=== PATIENT | male | born 1975 ===

== ENCOUNTER 2017-03-09 12:09 | Emergency (ER) | payer MEDICAID, MEDICARE ==
[2017-03-09 12:09] VITALS: BMI 32.6
[2017-03-09 12:15] VITALS: TEMP 98.1
[2017-03-09 12:59] LABS: SQUAMOUS EPITHIAL 2 /hpf (0-5); URINE BILIRUBIN NEGATIVE (NEGATIVE); URINE BLOOD 3+ (NEGATIVE); URINE CLARITY Clear (Clear); URINE COLOR Yellow (YELLOW); URINE GLUCOSE (UA) NORMAL (Normal); URINE LEUKOCYTE ESTERASE 1+ Leu/uL (Negative); URINE NITRATE NEGATIVE (NEGATIVE); URINE PROTEIN NEGATIVE (NEGATIVE); URINE UROBILINOGEN NORMAL mg/dL (0.2-1.0)
[2017-03-09] MEDS ORDERED: cefTRIAXone (Rocephin) 250 mg Inj IM STA (13:10)
--- NOTE | 2017-03-09 13:12 | C.PDOC ---
History Of Present Illness 41 y/o male presents to the ED with complaints of hematuria, dysuria which onset this morning. Pt states he was urinating and sneezed when he noticed blood in his urine; also noticed blood in subsequent urinations. Denies abdominal pain, back pain, flank pain, fever, chills, nausea, vomiting or any other complaints. Pt sexually active with 1 partner, no safe sex. No history of STD. Time Seen by Provider: 03/09/17 12:33 Chief Complaint (Nursing): Male Genitourinary History Per: Patient History/Exam Limitations: no limitations Onset/Duration Of Symptoms: Hrs Current Symptoms Are (Timing): Still Present Severity: Mild Associated Symptoms: Urinary Symptoms. denies: Fever, Chills, Nausea, Vomiting , Back Pain Alleviating Factors: None Recent travel outside of the [place]: No Past Medical History Reviewed: Historical Data, Nursing Documentation, Vital Signs Vital Signs: Last Vital Signs Temp 98.1 F 03/09/17 12:11 Pulse 104 H 03/09/17 12:11 Resp 18 03/09/17 12:11 BP 133/88 03/09/17 12:11 Pulse Ox 96 03/09/17 13:18 - Medical History PMH: Anxiety, Depression, HTN, Hypercholesterolemia Family History: States: Unknown Family Hx - Social History Hx Tobacco Use: No Hx Alcohol Use: Yes Hx Substance Use: Yes - Immunization History Hx Tetanus Toxoid Vaccination: No Hx Influenza Vaccination: Yes Hx Pneumococcal Vaccination: No Review Of Systems Except As Marked, All Systems Reviewed And Found Negative. Constitutional: Negative for: Fever, Chills Gastrointestinal: Negative for: Nausea, Vomiting, Abdominal Pain Genitourinary: Positive for: Dysuria, Hematuria Musculoskeletal: Negative for: Back Pain Physical Exam - Physical Exam Appears: Non-toxic, No Acute Distress Skin: Warm, Dry, No Rash Head: Atraumatic, Normacephalic Lymphatic: No Adenopathy (no inguinal lymphadenopathy) Cardiovascular: Rhythm Regular, No Murmur Respiratory: Normal Breath Sounds, No Rales, No Rhonchi, No Wheezing Gastrointestinal/Abdominal: Normal Exam, Soft, No Tenderness Back: No CVA Tenderness Male Genital: Normal Inspection, No Testicular Tenderness, No Inguinal Swelling , Other (no discharge or blood noted from urethra) Extremity: Normal ROM Neurological/Psych: Oriented x3, Normal Speech ED Course And Treatment O2 Sat by Pulse Oximetry: 96 (room air) Pulse Ox Interpretation: Normal Progress Note: Plan: UA, urine culture. Unlikely to be STD, but will treat preemptively with cipro Medical Decision Making Medical Decision Making: Patient with blood and leuks in the urine. Treated with Rocephin and Azytro Will d/c with Cipro. Disposition Counseled Patient/Family Regarding: Studies Performed, Diagnosis, Need For Followup, Rx Given - Disposition Referrals: Oracio Nye DO [Staff Provider] - Joselito Chopra MD [Staff Provider] - Disposition: HOME/ ROUTINE Disposition Time: 14:03 Condition: STABLE Additional Instructions: Follow up with your doctor and Urology. Take your antibiotics as indicated. Return to the Emergency Department with any further concerns. Call Dr. Wong for urine culture. [phone] Prescriptions: Ciprofloxacin [Cipro] 1 tab PO BID #14 tab Instructions: Acute Hematuria (DC) Forms: General Discharge Instructions - POA Present On Arrival: None - Clinical Impression Clinical Impression: Hematuria - Scribe Statement The provider has reviewed the documentation as recorded by the Monica Mayorga Provider Attestation: All medical record entries made by the Monica were at my direction and personally dictated by me. I have reviewed the chart and agree that the record accurately reflects my personal performance of the history, physical exam, medical decision making, and the department course for this patient. I have also personally directed, reviewed, and agree with the discharge instructions and disposition.
[2017-03-09 14:11] VITALS: BP 131/85; PULSE 100; RESP 20; O2SAT 98
== END 2017-03-09 14:14 | disposition home or self-care (01) ==
LOC: C.ER 12:09
DX: R31.9 Hematuria, unspecified (principal)
CPT/HCPCS: 81001; 87086; 96372; 99284; J0696

== ENCOUNTER 2018-02-09 12:54 | Inpatient (IN) | payer MEDICARE, MEDICAID ==
[2018-02-09 12:55] VITALS: BMI 32.6
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
[2018-02-09 13:54] LABS: BASO # 0.1 K/uL (0.0-0.2); BASO % 1.1 % (0.0-2.0); EOS # 0.2 K/uL (0.0-0.7); EOS % 2.2 % (0.0-4.0); HEMOGLOBIN 16.4 g/dL (12.0-18.0); LYMPH # 4.3 K/uL (1.0-4.3); LYMPH % 48.6 % (20.0-40.0); MEAN CELL VOLUME 84.8 fL (80.0-94.0); MEAN CORPUSCULAR HEMOGLOBIN 28.9 pg (27.0-31.0); MEAN CORPUSCULAR HGB CONC 34.1 g/dL (33.0-37.0); MEAN PLATELET VOLUME 7.8 fL (7.2-11.7); MONO # 0.7 K/uL (0.0-0.8); NEUT # 3.5 K/uL (1.8-7.0); NEUT % 40.1 % (50.0-75.0); NRBC % 0.1 % (0.0-2.0); RBC 5.65 Mil/uL (4.40-5.90); RED CELL DISTRIBUTION WIDTH 14.6 % (11.5-14.5); WHITE BLOOD COUNT 8.8 K/uL (4.8-10.8)
[2018-02-09 14:13] LABS: ALB/GLOB RATIO 1.2 (1.0-2.1); ALT/SGPT 76 U/L (21-72); AST/SGOT 48 U/L (17-59); BLOOD UREA NITROGEN 9 mg/dL (9-20); CALCIUM 9.6 mg/dl (8.6-10.4); GFR AFRICAN-AMERICAN > 60; GFR NON-AFRICAN AMERICAN > 60
[2018-02-09 14:34] LABS: SQUAMOUS EPITHIAL 1 /hpf (0-5); URINE BACTERIA RARE (<OCC); URINE BILIRUBIN NEGATIVE (NEGATIVE); URINE BLOOD 1+ (NEGATIVE); URINE CLARITY Clear (Clear); URINE COLOR Yellow (YELLOW); URINE GLUCOSE (UA) NORMAL (Normal); URINE HYALINE CAST 0-2 /lpf (0-2); URINE LEUKOCYTE ESTERASE NEG Leu/uL (Negative); URINE PROTEIN 1+ mg/dL (NEGATIVE); URINE UROBILINOGEN NORMAL mg/dL (0.2-1.0)
[2018-02-09 15:14] LABS: BARBITURATES, UR NEGATIVE (NEGATIVE); BENZODIAZEPINES, UR NEGATIVE (NEGATIVE); OPIATES, UR NEGATIVE (NEGATIVE); PHENCYCLIDINE, UR NEGATIVE (NEGATIVE)
[2018-02-09] MEDS ORDERED: Tetanus/Diphtheria Toxoids 0.5 ml Syringe IM ONE ×2 (16:43→17:06)
[2018-02-09] MEDS: Multiple Vitamins Tab PO SCH (17:28)
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
--- NOTE | 2018-02-09 18:07 | RAD ---
PROCEDURE: Right Foot Radiographs. HISTORY: trauma COMPARISON: None. FINDINGS: BONES: No acute fracture. Distal fibular fixation plate and screws. JOINTS: Ankle degenerative changes. SOFT TISSUES: Normal. OTHER FINDINGS: None. IMPRESSION: No demonstrated acute fracture or dislocation.
[2018-02-09] MEDS ORDERED: Albuterol HFA 90 mcg/actuation (8 g) INH PRN (19:40)
--- NOTE | 2018-02-10 02:19 | PCM.BM ---
<Soco Barrett - Last Filed: 02/10/18 02:18> Treatment Plan Problems - Problems identified on initial assessmt Depression Date Initiated: 02/09/18 Time Initiated: 16:30 Assessment reference: NA Status: Active Treatment assets and liabiliti Patient Assests: good support system, negotiates basic needs Patient Liabilities: substance abuse (Cocaine, ETOH), medical problems ( Cholesterol, HTN) <Ana María Gaytan - Last Filed: 02/10/18 11:21> - Diagnosis (1) Bipolar disorder Status: Acute Interventions: 02/10/18 11:21 * Assess/adjust medications daily and /or as needed * See patient on an individual basis 7x/week to assess level of manic behaviors and stability * Discuss risks, benefits, side effects and alternatives of medications * <Yessy Taveras - Last Filed: 02/10/18 13:43> Family Contact Family involvement: Family/SO is involved Family contact: Patient declines to allow family contact at present - Goals for Treatment Patient goals for treatment: "I want to go back to my program." Discharge/Continuing Care - Education Needs Education Needs: Patient Medication, Patient Coping Skills - Discharge Discharge Criteria: Tolerates medication w/o severe side effects, No longer exhibiting s/s of withdrawal, Reduction of target symptoms Discharge to:: Home, With Family - Treatment Team Participation Discussed with Family/SO: No Was Patient/Family/SO present at Treatment Team Meeting: Yes
[2018-02-10] MEDS: Pantoprazole 20 mg EC Tab PO SCH (10:25)
[2018-02-10] MEDS: Multiple Vitamins Tab PO SCH (10:25)
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
[2018-02-10] MEDS ORDERED: Bacitracin Ointment 30 GM TUBE TOP PRN (20:00)
[2018-02-10] MEDS ORDERED: Sodium Chloride Nasal 0.65% Soln (30ml) NAS PRN (20:00)
[2018-02-10] MEDS: Oxymetazoline 0.05% Nasal Spray (30 ml) NS PRN (21:12)
[2018-02-11 07:06] VITALS: O2SAT 95
[2018-02-11] MEDS: Multiple Vitamins Tab PO SCH (10:03)
[2018-02-11] MEDS: Pantoprazole 20 mg EC Tab PO SCH (10:03)
[2018-02-11] MEDS: Oxymetazoline 0.05% Nasal Spray (30 ml) NS PRN ×2 (10:11→21:56)
--- NOTE | 2018-02-11 19:14 | PCM.PYCHPN ---
Psychiatric Progress Note - Psychiatric Progress Note Patient seen today, length of contact: 15 minutes Patient Chief Complaint: I'm doing good. Problems Identified/Issues Discussed: Patient seen, chart reviewed, case discussed with the staff. Issues related to illness and treatment were discussed with the patient and staff. Reported compliant with treatment with no adverse affects. Tolerating treatment very well. Feeling much better. Aftercare discussed with the patient. At the time of evaluation, patient was awake alert oriented 3, had no delusions , no auditory or visual hallucinations, no suicidal ideations or homicidal ideations. Medical Problems: None reported Diagnostic Results: Reviewed DSM 5 Symptoms Update: Some improvement with treatment Medication Change: No Medical Record Reviewed: Yes Mental Status Examination - Cognitive Function Orientation: Person, Place, Situation, Time Memory: Intact Attention: WNL Concentration: WNL Association: WN Fund of Knowledge: [facility] Decription of patient's judgement and insights: Fair - Mood Mood: Anxious (Less than before) - Affect Affect: Other (Appropriate) - Speech Speech: Appropriate - Formal Thought Process Formal Thought Process: No Impairment - Suicidal Ideation Suicidal Ideation: No - Homicidal Ideation Homicidal Ideation: No Goal/Treatment Plan - Goal/Treatment Plan Need for Continued Stay: Remain at risks for inpatient hospitalization, Discharge may exacerbated symptoms, Severe functional impairment Progress Toward Problem(s) and Goals/Treatment Plan: Some improvement with treatment. Patient education. Supportive therapy. Continue treatment as before. Estimated Date of D/C: 02/15/18 - Smoking Cessation Smoking Cessation Initiated: No
[2018-02-12] MEDS: Multiple Vitamins Tab PO SCH (10:29)
[2018-02-12] MEDS: Pantoprazole 20 mg EC Tab PO SCH (10:29)
[2018-02-12] MEDS: Oxymetazoline 0.05% Nasal Spray (30 ml) NS PRN (10:30)
--- NOTE | 2018-02-12 18:37 | PCM.PYCHPN ---
Psychiatric Progress Note - Psychiatric Progress Note Patient seen today, length of contact: 15 minutes Patient Chief Complaint: I'm doing good. Problems Identified/Issues Discussed: Patient seen, chart reviewed, case discussed with the staff. Issues related to illness and treatment were discussed with the patient and staff. Reported compliant with treatment with no adverse affects. Tolerating treatment very well. Feeling much better. Aftercare discussed with the patient. At the time of evaluation, patient was awake alert oriented 3, had no delusions , no auditory or visual hallucinations, no suicidal ideations or homicidal ideations. Medical Problems: None reported Diagnostic Results: Reviewed DSM 5 Symptoms Update: Improving with treatment Medication Change: No Medical Record Reviewed: Yes Mental Status Examination - Cognitive Function Orientation: Person, Place, Situation, Time Memory: Intact Attention: WNL Concentration: WNL Association: WN Fund of Knowledge: [facility] Decription of patient's judgement and insights: Fair - Mood Mood: Anxious (Less than before) - Affect Affect: Other (Appropriate) - Speech Speech: Appropriate - Formal Thought Process Formal Thought Process: No Impairment - Suicidal Ideation Suicidal Ideation: No - Homicidal Ideation Homicidal Ideation: No Goal/Treatment Plan - Goal/Treatment Plan Need for Continued Stay: Remain at risks for inpatient hospitalization, Discharge may exacerbated symptoms, Severe functional impairment Progress Toward Problem(s) and Goals/Treatment Plan: Some improvement with treatment. Patient education. Supportive therapy. Continue treatment as before. Estimated Date of D/C: 02/15/18 - Smoking Cessation Smoking Cessation Initiated: No
[2018-02-13 06:17] VITALS: BP 127/77; PULSE 90; RESP 20; TEMP 98.4
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
[2018-02-13] MEDS: Oxymetazoline 0.05% Nasal Spray (30 ml) NS PRN (10:47)
[2018-02-13] MEDS: Multiple Vitamins Tab PO SCH (10:47)
[2018-02-13] MEDS: Pantoprazole 20 mg EC Tab PO SCH (10:48)
== END 2018-02-13 11:50 | disposition home or self-care (01) | DRG 885 ==
LOC: C.ER 12:54 → C.5E 15:55
PROVIDERS: ADMIT Psychiatry & Neurology Psychiatry; ATTEND Psychiatry & Neurology Psychiatry
PROC: GZ3ZZZZ Medication Management (ICD-10-PCS; principal; 2018-02-09)
PROC: HZ99ZZZ Pharmacotherapy for Substance Abuse Treatment, Other Replacement Medication (ICD-10-PCS; 2018-02-09)
PROC: GZHZZZZ Group Psychotherapy (ICD-10-PCS; 2018-02-09)
PROC: GZ56ZZZ Individual Psychotherapy, Supportive (ICD-10-PCS; 2018-02-09)
DX: F31.64 Bipolar disorder, current episode mixed, severe, with psychotic features (principal); F14.20 Cocaine dependence, uncomplicated; F10.129 Alcohol abuse with intoxication, unspecified; Y90.6 Blood alcohol level of 120-199 mg/100 ml; I10 Essential (primary) hypertension; E78.00 Pure hypercholesterolemia, unspecified; Z91.14 Patient's other noncompliance with medication regimen